=== PATIENT | female | born 1995 | race Caucasian/White ===

== ENCOUNTER 2017-01-09 11:16 | Emergency (ER) | payer OTHER ==
[~2017-01-09] VITALS: Ht 165.1 cm; Wt 81.0 kg
[2017-01-09 11:22] VITALS: Ht 165.1 cm; Wt 81.0 kg
[2017-01-09] MEDS ORDERED: ONDANSETRON (ODT) 4 MG TAB ODT STA (11:32)
[2017-01-09] MEDS ORDERED: BISM262O23 PO (11:50)
[2017-01-09] MEDS ORDERED: ONDA8TAB14 PO (11:50)
--- NOTE | 2017-01-09 11:53 | ERD ---
ER Documentation Chief Complaint Date/Time DATE: 01/09/17 TIME: 11:52 Chief Complaint diarrhea and vomiting x 3 days HPI This 21-year-old female presents with vomiting diarrhea for last 3 days. She is here with her 3 children with similar symptoms. The vomit is nonbilious nonbloody and there is no blood or mucus in the diarrhea she has minimal epigastric pain. There is no history of foreign travel, fevers or lower abdominal pain. Symptoms may have started after kids visited [employer] ROS All systems reviewed and are negative except as per history of present illness. Medications Home Meds Active Scripts Bismuth Subsalicylate* (Pepto-Bismol*) 262 Mg/15 Ml Oral.susp, 15 ML PO Q3H Y for DIARRHEA for 4 Days, ML Prov:CAMI ALARCON MD 01/09/17 Ondansetron (Ondansetron Odt) 8 Mg Tab.rapdis, 8 MG PO Q6H Y for NAUSEA AND/OR VOMITING, #6 TAB Prov:CAMI ALARCON MD 01/09/17 Allergies Allergies: Coded Allergies: No Known Allergies (Verified Allergy, Unknown, 05/09/14) PMhx/Soc History of Surgery: No Anesthesia Reaction: No Hx Neurological Disorder: No Hx Respiratory Disorders: No Hx Cardiac Disorders: No Hx Psychiatric Problems: No Hx Miscellaneous Medical Probl: No Hx Alcohol Use: No Hx Substance Use: No Hx Tobacco Use: No Smoking Status: Never smoker Physical Exam Vitals Vital Signs Date Time Temp Pulse Resp B/P Pulse Ox O2 Delivery O2 Flow Rate FiO2 01/09/17 11:22 97.4 97 18 110/75 98 Physical Exam Const: [] Alert, [id number] per Head: Atraumatic Eyes: Normal Conjunctiva ENT: Normal External Ears, Nose and Mouth. Neck: Full range of motion..~ No meningismus. Resp: Clear to auscultation bilaterally Cardio: Regular rate and rhythm, no murmurs Abd: Soft, non tender, non distended. Normal bowel sounds Skin: No petechiae or rashes Back: No midline or flank tenderness Ext: No cyanosis, or edema Neur: Awake and alert Psych: Normal Mood and Affect Results 24 hrs Current Medications Medications (Trade) Dose Ordered Sig/Michelet Route PRN Reason Start Time Stop Time Status Last Admin Dose Admin Ondansetron HCl (Zofran Odt) 8 mg ONCE STAT ODT 01/09/17 11:32 01/09/17 11:33 DC 01/09/17 11:43 Procedures/MDM Patient is diarrhea and vomiting for 2-3 days which appears to be improving. History and signs or symptoms are consistent with viral gastroenteritis. She will treated with Zofran and instructions for bland diet and Pepto-Bismol. The patient was stable with no new complaints during the ER course. Clinically, there is no current evidence to suggest meningitis, sepsis, acute abdomen, pneumonia, acute coronary syndrome, pulmonary embolism, or any other emergent condition appearing to require further evaluation or hospitalization. The patient should certainly return for any new or worsening symptoms per the aftercare instructions. They should otherwise follow-up with her primary care doctor for reevaluation this week. Departure Diagnosis: Primary Impression: Diarrhea Diarrhea type: unspecified type Qualified Code: R19.7 - Diarrhea, unspecified type Condition: Stable Patient Instructions: Self-Care for Vomiting and Diarrhea Additional Instructions: Likely viral illness usually resolves within a week. Recheck for new or worsening symptoms with primary care doctor. CAMI ALARCON MD January 09, 2017 11:53
== END 2017-01-09 12:09 | disposition home or self-care (01) ==
LOC: FTE 11:16
DX: R19.7 Diarrhea, unspecified (principal); R11.10 Vomiting, unspecified
CPT/HCPCS: Z7502; Z7610; 99283

== ENCOUNTER 2018-12-22 23:25 | Emergency (ER) | payer OTHER ==
[~2018-12-22] VITALS: Ht 167.6 cm; Wt 83.5 kg
[~2018-12-22 23:25] MED LIST: BISM262O23 PO; ONDA8TAB14 PO
[2018-12-22 23:33] VITALS: BP 137/88; PULSE 86; RESP 18; Ht 167.6 cm; Wt 83.5 kg
[2018-12-23] MEDS ORDERED: KETOROLAC 30 MG INJ IM STA (01:17)
--- NOTE | 2018-12-23 01:21 | ERD ---
ER Documentation Chief Complaint Chief Complaint pelvic pain rad to lower back x1d; no dysuria, den preg. HPI Patient is a 23-year-old female with no past medical history presents the ER for concerns of pelvic pain which is radiating to her lower back. She states the pain starts in her suprapubic region radiates to bilateral sides into her back. She denies any falls or trauma. She denies any nausea, vomiting, fevers, chills, dysuria, urgency, urgency or hematuria. Patient denies any vaginal discharge. She denies any diarrhea. No recent travel. No sick contacts. Patient states her last menstrual period was 1 week ago. ROS All systems reviewed and are negative except as per history of present illness. Medications Home Meds Active Scripts Ibuprofen* (Motrin*) 600 Mg Tab, 600 MG PO Q6, #30 TAB Prov:JAKOB GAGNON PA-C 12/23/18 Bismuth Subsalicylate* (Pepto-Bismol*) 262 Mg/15 Ml Oral.susp, 15 ML PO Q3H PRN for DIARRHEA for 4 Days, ML Prov:CAMI ALARCON MD 01/09/17 Ondansetron (Ondansetron Odt) 8 Mg Tab.rapdis, 8 MG PO Q6H PRN for NAUSEA AND/OR VOMITING, #6 TAB Prov:CAMI ALARCON MD 01/09/17 Allergies Allergies: Coded Allergies: No Known Allergies (Verified Allergy, Unknown, 05/09/14) PMhx/Soc Medical and Surgical Hx: pt denies Medical Hx, pt denies Surgical Hx History of Surgery: No Anesthesia Reaction: No Hx Neurological Disorder: No Hx Respiratory Disorders: No Hx Cardiac Disorders: No Hx Psychiatric Problems: No Hx Miscellaneous Medical Probl: No Hx Alcohol Use: No Hx Substance Use: No Hx Tobacco Use: No Smoking Status: Never smoker FmHx Family History: No diabetes Physical Exam Vitals Vital Signs Date Temp Pulse Resp B/P (MAP) Pulse Ox O2 O2 Flow FiO2 Time Delivery Rate 12/22/18 99.3 86 18 137/88 98 23:33 (104) Physical Exam GENERAL: Well-developed, well-nourished female. Appears in no acute distress. HEAD: Normocephalic, atraumatic. EYES: Pupils are equally reactive bilaterally. EOMs grossly intact. No conjunctival erythema. ENT: Moist mucous membranes. No uvula deviation. No kissing tonsils. NECK: Supple. No meningismus. Normal range of motion of the neck. LUNG: Clear to auscultation bilaterally. No rhonchi, wheezing, rales or coarse breath sounds. HEART: Regular rate and rhythm. No murmurs, rubs or gallops. ABDOMEN: Soft nondistended. Tender to palpation in the suprapubic region. Positive bowel sounds in all four quadrants. No rebound tenderness, no guarding. (-) McBurney's point tenderness. No CVA tenderness. BACK: No midline tenderness. EXTREMITIES: Equal pulses bilaterally. No peripheral clubbing, cyanosis or edema. No unilateral leg swelling. NEUROLOGIC: Alert and oriented. Moving all four extremities without any difficulty. Normal speech. Steady gait. SKIN: Normal color. Warm and dry. No rashes or lesions. Results 24 hrs Laboratory Tests Test 12/23/18 01:37 12/23/18 01:41 Bedside Urine pH (LAB) 6.5 Bedside Urine Protein (LAB) Trace Bedside Urine Glucose (UA) Negative Bedside Urine Ketones (LAB) Negative Bedside Urine Blood Negative Bedside Urine Nitrite (LAB) Negative Bedside Urine Leukocyte Esterase (L Negative POC Beta HCG, Qualitative NEGATIVE Current Medications Medications Dose Sig/Michelet Start Time Status Last (Trade) Ordered Route PRN Stop Time Admin Dose Reason Admin Ketorolac 30 mg ONCE STAT 12/23/18 DC 12/23/18 Tromethamine IM 01:17 01:47 (Toradol) 12/23/18 01:18 Procedures/MDM ED COURSE: The patient was stable throughout ED course. I kept the patient and/or family informed of laboratory and diagnostic imaging results throughout the ED course. DIAGNOSTIC IMAGING: Read by radiologist. Patient: EDDIE LOZADA : 1995 Age: 23 Sex: F MR #: [id number] DOS: 12/23/18 0117 Ordering MD: JAKOB GAGNON PA-C Location: [facility] Room/Bed: PROCEDURE: Pelvic ultrasound, limited. CLINICAL INDICATION: Pelvic pain. TECHNIQUE: Multiple sonographic images of the pelvis were obtained utilizing a transabdominal technique. The images were reviewed on a PACS workstation. COMPARISON: None. FINDINGS: The uterus is visualized and measures 7.8 x 5.1 x 6.7 cm. No abnormal uterine mass is identified. The endometrial echo complex is homogeneous and measures 3.5 mm. There is no evidence for free fluid. The right ovary has a normal echotexture and measures 3.3 x 1.5 x 3.5 cm. The left ovary has a normal echotexture and measures 3.8 x 1.5 x 3.9 cm. There is normal flow to both ovaries. No adnexal masses are identified. IMPRESSION: Unremarkable pelvic ultrasound. .Lai Schuler MD, MD Date Time Electronically viewed and signed by .Lai Schuler MD, MD on 12/23/2018 02:28 .T/ CC: JAKOB GAGNON PA-C [id number] PROCEDURES: None. MEDICATIONS GIVEN: Toradol Patient tolerated medication well with no adverse reactions. Patient reported improvement in pain. MEDICAL DECISION MAKING: This is a 23-year-old female presents here for concerns of pelvic pain x1 day. Vital signs were reviewed. Patient was afebrile. Urine test was negative. UA showed no signs of acute infection or hematuria. Pelvic ultrasound was unremarkable. See formal report above. At this time, patient presentation is most consistent with acute pelvic pain of unknown etiology. Patient advised to follow-up with [employer]. Referral was provided. Low suspicion for ectopic , ovarian torsion, PID, tubo-ovarian abscess, fibroids, endometriosis, vulvovaginitis, uterine prolapse, nephrolithiasis, pyelonephritis, UTI, appendicitis, diverticulitis, bowel obstruction, perirectal abscess. Patient was nontoxic, [id number] prior to discharge. PRESCRIPTIONS: Ibuprofen DISCHARGE: At this time, patient is stable for discharge and outpatient management. I have instructed the patient to follow-up with his/her primary care physician in 1-2 days. I have discussed with the patient the possibility of needing to see a specialist for further workup and diagnostic studies if the pain persists. I have instructed the patient to promptly return to the ER at any time for any new or worsening symptoms including increased pain, nausea, vomiting, vaginal bleeding, weakness or fever. The patient and/or family expressed understanding of and agreement with this plan. All questions were answered. Home care instructions were provided. Disclaimer: Inadvertent spelling and grammatical errors are likely due to EHR/dictation software use and do not reflect on the overall quality of patient care. Also, please note that the electronic time recorded on this note does not necessarily reflect the actual time of the patient encounter. Departure Diagnosis: Primary Impression: Acute pain in female pelvis Condition: Fair Patient Instructions: Pelvic Pain, Unknown Cause Referrals: FERNANDO FAGAN (PCP) [facility] YOU HAVE RECEIVED A MEDICAL SCREENING EXAM AND THE RESULTS INDICATE THAT YOU DO NOT HAVE A CONDITION THAT REQUIRES URGENT TREATMENT IN THE EMERGENCY DEPARTMENT. FURTHER EVALUATION AND TREATMENT OF YOUR CONDITION CAN WAIT UNTIL YOU ARE SEEN IN YOUR DOCTORS OFFICE WITHIN THE NEXT 1-2 DAYS. IT IS YOUR RESPONSIBILITY TO MAKE AN APPOINTMENT FOR FOLOW-UP CARE. IF YOU HAVE A PRIMARY DOCTOR --you should call your primary doctor and schedule an appointment IF YOU DO NOT HAVE A PRIMARY DOCTOR YOU CAN CALL OUR PHYSICIAN REFERRAL HOTLINE AT IF YOU CAN NOT AFFORD TO SEE A PHYSICIAN YOU CAN CHOSE FROM THE FOLLOWING [facility] [address] [facility] [address] [facility]. [facility] [address] [facility] [address] [facility] [address] [facility]. [facility]. [address] [facility]. [facility] YOU HAVE RECEIVED A MEDICAL SCREENING EXAM AND THE RESULTS INDICATE THAT YOU DO NOT HAVE A CONDITION THAT REQUIRES URGENT TREATMENT IN THE EMERGENCY DEPARTMENT. FURTHER EVALUATION AND TREATMENT OF YOUR CONDITION CAN WAIT UNTIL YOU ARE SEEN IN YOUR DOCTORS OFFICE WITHIN THE NEXT 1-2 DAYS. IT IS YOUR RESPONSIBILITY TO MAKE AN APPOINTMENT FOR FOLOW-UP CARE. IF YOU HAVE A PRIMARY DOCTOR --you should call your primary doctor and schedule and appointment IF YOU DO NOT HAVE A PRIMARY DOCTOR YOU CAN CALL OUR PHYSICIAN REFERRAL HOTLINE AT . IF YOU CAN NOT AFFORD TO SEE A PHYSICIAN YOU CAN CHOSE FROM THE FOLLOWING [facility] INSTITUTIONS: [facility] [address] [place] [address] [facility] [address] [place] [address] [facility] [address] [place] [address] [facility] URGENT CARE/SPECIALTIES [employer] [place] [address] [facility] [address] [place] [address] OFFICE FAX , [facility] [address] [place], [place] [id number], [place] [address] [place] [address] [address], [facility] [address] [facility], [facility] [address] [address] [facility] [address] [place] [address] [facility] [address] [place] [address] [address] [facility] [address] - [address] [facility] [address] [facility] [address] [facility]. [address], [facility] [address] [address] [facility] [facility] [address] [place], [place] [id number] Additional Instructions: Call your primary care doctor TOMORROW for an appointment during the next 1-2 days.See the doctor sooner or return here if your condition worsens before your appointment time. JAKOB GAGNON PA-C Dec 23, 2018 01:21
[2018-12-23] MEDS ORDERED: IBUP-1542 PO (02:37)
== END 2018-12-23 03:05 | disposition home or self-care (01) ==
LOC: FTE 23:25
DX: R10.2 Pelvic and perineal pain (principal)
CPT/HCPCS: 76856; 81003; 81025; J1885; 96372

== ENCOUNTER 2019-04-14 21:32 | Emergency (ER) | payer OTHER ==
[~2019-04-14] VITALS: Ht 167.6 cm; Wt 84.3 kg
[~2019-04-14 21:32] MED LIST changes: +AMOX1TAB10 PO; +IBUP-1542 PO
[2019-04-14 21:35] VITALS: BP 134/72; PULSE 96; RESP 16; Ht 167.6 cm; Wt 84.3 kg
[2019-04-14] MEDS ORDERED: AMOXICILLIN/CLAV 875 MG TAB PO ONE (22:30)
== END 2019-04-14 22:50 | disposition home or self-care (01) ==
LOC: EDUNIT# 21:32 → FTE 21:32
DX: O9A.211 Injury, poisoning and certain other consequences of external causes complicating pregnancy, first trimester (principal); S51.832A Puncture wound without foreign body of left forearm, initial encounter; W55.01XA Bitten by cat, initial encounter; Y92.009 Unspecified place in unspecified non-institutional (private) residence as the place of occurrence of the external cause; Z3A.14 14 weeks gestation of pregnancy
CPT/HCPCS: Z7502; Z7610; 99283

== ENCOUNTER 2019-04-17 01:09 | Emergency (ER) | payer OTHER ==
[~2019-04-17] VITALS: Ht 167.6 cm; Wt 85.0 kg
[2019-04-17 01:14] VITALS: BP 129/79; PULSE 59; RESP 18; Ht 167.6 cm; Wt 85.0 kg
== END 2019-04-17 03:38 | disposition home or self-care (01) ==
LOC: FTE 01:09
DX: O26.891 Other specified pregnancy related conditions, first trimester (principal); R10.2 Pelvic and perineal pain; Z3A.14 14 weeks gestation of pregnancy
CPT/HCPCS: 36415; 76801; 80053; 81003; 85025; 87086; Z7502